=== PATIENT | female | born 1995 | race Caucasian/White ===

== ENCOUNTER 2018-07-29 11:42 | Emergency (ER) | payer SELFPAY ==
[~2018-07-29] VITALS: Ht 152.4 cm; Wt 90.0 kg
[2018-07-29 11:44] VITALS: BP 122/85
[2018-07-29] MEDS ORDERED: OINTMENT TD (11:45)
[2018-07-29] MEDS ORDERED: MUPIROCIN CALCIUM 2% 22 GM OINTMENT TP ONE (12:45)
== END 2018-07-29 13:27 | disposition home or self-care (01) ==
LOC: EMS 11:43
DX: L01.00 Impetigo, unspecified (principal)